=== PATIENT | male | born 1985 | race African-American/Black ===

== ENCOUNTER 2017-08-16 23:03 | Emergency (ER) | payer SELFPAY, OTHER | END 2017-08-17 02:13 | disposition left against medical advice (07) | LOC: FTE 23:03 | DX: Z53.21 Procedure and treatment not carried out due to patient leaving prior to being seen by health care provider (principal) ==

== ENCOUNTER 2017-08-17 06:18 | Emergency (ER) | payer OTHER | END 2017-08-17 06:58 | disposition home or self-care (01) | LOC: FTE 06:18 | DX: K02.9 Dental caries, unspecified (principal); Z87.891 Personal history of nicotine dependence | CPT/HCPCS: 99284; Z7502 ==

== ENCOUNTER 2017-09-10 20:09 | Emergency (ER) | payer SELFPAY, OTHER | END 2017-09-10 22:48 | disposition left against medical advice (07) | LOC: FTE 20:09 | DX: Z53.21 Procedure and treatment not carried out due to patient leaving prior to being seen by health care provider (principal) ==